=== PATIENT | female | born 1995 | race Two or more races ===

== ENCOUNTER 2016-09-17 07:13 | Emergency (ER) | payer BC, OTHER ==
[~2016-09-17] VITALS: Ht 157.5 cm; Wt 68.0 kg
[2016-09-17 07:22] VITALS: BP 124/76
== END 2016-09-17 07:30 | disposition home or self-care (01) ==
LOC: ER 07:15
DX: J02.9 Acute pharyngitis, unspecified (principal)
CPT/HCPCS: 99282; A4606; Z7610

== ENCOUNTER 2017-06-20 12:54 | Outpatient (CLI) | payer BC ==
[2017-06-20 14:04] LABS: BASOPHILS % (AUTO) 0.5 % (0.0-2.0); EOSINOPHILS # (AUTO) 0.1 /CMM (0.0-0.7); EOSINOPHILS % (AUTO) 1.3 % (0.0-6.0); HEMATOCRIT 35 % (33-45); HEMOGLOBIN 11.3 g/dL (11.5-14.8); LYMPHOCYTES % (AUTO) 31.5 % (20.0-44.0); MEAN CORPUSCULAR HEMOGLOBIN 22 PG (26.0-33.0); MEAN CORPUSCULAR HGB CONC 32 g/dl (31.0-36.0); MEAN CORPUSCULAR VOLUME 69 fL (82-100); MONOCYTES # (AUTO) 0.3 /CMM (0.1-1.30); MONOCYTES % (AUTO) 4.1 % (2.0-12.0); NEUTROPHILS # (AUTO) 3.9 /CMM (1.8-8.9); NEUTROPHILS % (AUTO) 62.6 % (43.0-81.0); PLATELET COUNT (AUTO) 332 /CMM (150-450); RDW COEFFICIENT OF VARIATION 18.8 (11.5-15.0); RED BLOOD CELL COUNT(AUTO) 5.08 MIL/uL (4.0-5.2); WHITE BLOOD COUNT (AUTO) 6.2 K/uL (4.3-11.0)
[2017-06-20 14:23] LABS: ALBUMIN 3.7 g/dL (3.4-5.0); BILIRUBIN,TOTAL 0.3 mg/dL (0.2-1.0); CREATININE 0.5 mg/dL (0.6-1.3); POTASSIUM 3.7 mmol/L (3.5-5.1); TOTAL PROTEIN, SERUM 7.4 g/dL (6.4-8.2)
[2017-06-20 14:29] LABS: FREE T4 (FREE THYROXINE) 1.21 ng/dL (0.76-1.46); THYROID STIMULATING HORMONE 0.778 uIU/mL (0.358-3.74)
== END 2017-06-20 23:59 | disposition home or self-care (01) ==
LOC: LAB 12:54
PROVIDERS: ATTEND Family Medicine
DX: F41.1 Generalized anxiety disorder (principal); Z68.32 Body mass index [BMI] 32.0-32.9, adult; R79.89 Other specified abnormal findings of blood chemistry
CPT/HCPCS: 36415; 80053-TC; 80061-TC; 84439-TC; 84443-TC; 85025-TC; 86900-TC

== ENCOUNTER 2018-02-13 11:44 | Emergency (ER) | payer BC ==
[~2018-02-13] VITALS: Ht 160 cm; Wt 79.4 kg
[2018-02-13 11:44] VITALS: BP 132/71
[2018-02-13] MEDS ORDERED: MECLIZINE HCL 25 MG TABLET ONE (12:14)
[2018-02-13] MEDS ORDERED: MECLIZINE HCL 12.5 MG TABLET PO ONE (12:30)
== END 2018-02-13 12:24 | disposition home or self-care (01) ==
LOC: ER 11:45
DX: H81.399 Other peripheral vertigo, unspecified ear (principal)
CPT/HCPCS: 99282; A4606; J8597; Z7610

== ENCOUNTER 2018-08-29 14:31 | Emergency (ER) | payer BC ==
[~2018-08-29] VITALS: Ht 157.5 cm; Wt 79.4 kg
--- NOTE | 2018-08-29 14:35 | NUR ---
PT BIB SELF C/O BILATERAL ARM PAIN X 2 YEARS,GETTING WORSE, PT IS AAOX4, V/S STABLE, NOT IN RESPIRATORY DISTRESS, KEPT RESTED AND COMFORTABLE.
[2018-08-29] MEDS ORDERED: KETOROLAC TROMETHAMINE INJ 60 MG/2 ML VIAL IM ONE (15:00)
[2018-08-29] MEDS ORDERED: KETOROLAC TROMETHAMINE INJ 30 MG/ML VIAL ONE (15:10)
--- NOTE | 2018-08-29 16:26 | NUR ---
Patient discharged to home in stable condition. Written and verbal after care instructions given. Patient verbalizes understanding of instruction.
[2018-08-29 16:31] VITALS: BP 117/66
== END 2018-08-29 16:32 | disposition home or self-care (01) ==
LOC: ER 14:33
DX: S16.1XXA Strain of muscle, fascia and tendon at neck level, initial encounter (principal); M75.22 Bicipital tendinitis, left shoulder; M75.21 Bicipital tendinitis, right shoulder; X58.XXXA Exposure to other specified factors, initial encounter; Y93.89 Activity, other specified; Y92.89 Other specified places as the place of occurrence of the external cause; Y99.8 Other external cause status
CPT/HCPCS: 72050; 96372; 99283; A4606; J1885; Z7610

== ENCOUNTER 2019-10-25 08:43 | Outpatient (CLI) | payer BC | END 2019-10-25 23:59 | disposition home or self-care (01) | LOC: CT 08:43 | PROVIDERS: ATTEND Family Medicine | DX: R41.3 Other amnesia (principal) | CPT/HCPCS: 70450-TC ==

== ENCOUNTER 2020-04-01 13:59 | Outpatient (CLI) | payer BC | END 2020-04-01 23:59 | disposition home or self-care (01) | LOC: LAB 13:59 | PROVIDERS: ATTEND Family Medicine | DX: R89.1 Abnormal level of hormones in specimens from other organs, systems and tissues (principal) | CPT/HCPCS: 36415 ==

== ENCOUNTER 2021-06-19 18:19 | Emergency (ER) | payer BC ==
[~2021-06-19] VITALS: Ht 157.5 cm; Wt 84.4 kg
[2021-06-19] MEDS ORDERED: LIDOCAINE VISCOUS 2% UD 15 ML UDC MM ONE (19:00)
[2021-06-19] MEDS ORDERED: MAG HYDROX/AL HYDROX/SIMETH 30 ML UDC PO ONE (19:00)
[2021-06-19 19:18] LABS: BASOPHILS # (AUTO) 0.1 K/uL (0.0-0.2); EOSINOPHILS % (AUTO) 0.6 % (0.0-6.0); HEMATOCRIT 38 % (33-45); HEMOGLOBIN 12.2 g/dL (11.5-14.8); LYMPHOCYTES # (AUTO) 1.6 K/uL (0.8-4.8); LYMPHOCYTES % (AUTO) 29.5 % (20.0-44.0); MEAN CORPUSCULAR HGB CONC 32 g/dl (31.0-36.0); MEAN CORPUSCULAR VOLUME 74 fL (82-100); MONOCYTES # (AUTO) 0.5 K/uL (0.1-1.30); MONOCYTES % (AUTO) 8.4 % (2.0-12.0); NEUTROPHILS # (AUTO) 3.3 K/uL (1.8-8.9); NEUTROPHILS % (AUTO) 60.5 % (43.0-81.0); PLATELET COUNT (AUTO) 317 K/uL (150-450); RED BLOOD CELL COUNT(AUTO) 5.18 MIL/uL (4.0-5.2); WHITE BLOOD COUNT (AUTO) 5.5 K/uL (4.3-11.0)
[2021-06-19] MEDS ORDERED: LIDOCAINE VISCOUS 2% UD 15 ML UDC ONE (19:18)
[2021-06-19] MEDS ORDERED: MAG HYDROX/AL HYDROX/SIMETH 30 ML UDC ONE (19:18)
--- NOTE | 2021-06-19 19:31 | NUR ---
pt refused iv insertion
[2021-06-19 19:32] LABS: CREATININE 0.7 mg/dL (0.6-1.3); POTASSIUM 3.5 mmol/L (3.5-5.1)
[2021-06-19 19:38] LABS: ALBUMIN 3.9 g/dL (3.4-5.0); BILIRUBIN,DIRECT 0.1 mg/dL (0.0-0.2); BILIRUBIN,TOTAL 0.2 mg/dL (0.2-1.0)
[2021-06-19] MEDS ORDERED: PANT40TA2 PO (19:55)
[2021-06-19 20:14] VITALS: BP 115/66
== END 2021-06-19 20:14 | disposition home or self-care (01) ==
LOC: ER 18:21
DX: R10.13 Epigastric pain (principal)
CPT/HCPCS: 36415; 76705-TC; 80048-TC; 80076-TC; 83690-TC; 85025-TC

== ENCOUNTER 2021-06-28 13:29 | Outpatient (CLI) | payer BC ==
[~2021-06-28 13:29] MED LIST: PANT40TA2 PO
== END 2021-06-28 23:59 | disposition home or self-care (01) ==
LOC: MRI 13:29
PROVIDERS: ATTEND Family Medicine
DX: M51.27 Other intervertebral disc displacement, lumbosacral region (principal); M48.07 Spinal stenosis, lumbosacral region
CPT/HCPCS: 72148-TC